=== PATIENT | female | born 1945 | race Caucasian/White ===

== ENCOUNTER 2016-11-20 05:19 | Inpatient (IN) ==
[2016-11-20 05:48] VITALS: BMI 23.0
[2016-11-20] MEDS ORDERED: ONDANSETRON 4 MG/2 ML INJECTION IVP ONE (06:00)
[2016-11-20] MEDS ORDERED: NOZIN NASAL SWAB NAS ONE ×2 (06:00→10:44)
[2016-11-20] MEDS ORDERED: FAMOTIDINE PB 20 MG/50 ML BAG IV ONE (06:00)
[2016-11-20] MEDS ORDERED: LIDOCAINE 1% (10mg/ml) 10mL MDV SQ ONE (06:00)
[2016-11-20] MEDS ORDERED: ACETAMINOPHEN 500 MG TABLET PO ONE (06:00)
[2016-11-20] MEDS ORDERED: DEXAMETHASONE 4 MG/ML INJECTION IVP ONE (06:00)
[2016-11-20] MEDS ORDERED: CLINDAMYCIN PB 900 MG/50 ML BAG IV ONE (06:00)
[2016-11-20] MEDS ORDERED: METOCLOPRAMIDE 10mg/2ml INJECTION IVP ONE (06:00)
[2016-11-20] MEDS ORDERED: LIDOCAINE 1% (10mg/ml) 2mL INJ PF SDV ID ONE (06:16)
[2016-11-20] MEDS: LR 1,000 ML IV SCH ×3 (06:17→09:56)
[2016-11-20] MEDS ORDERED: VANCOMYCIN 1,000 MG INJECTION ONE (06:23)
--- NOTE | 2016-11-20 07:14 | History & Physical Update ---
- History and Physical Update Date: 11/20/16 Update: I evaluated this patient and found no changes in the history and clinical exam findings. The treatment plan and recommendations are also unchanged from the previous documentation.
[2016-11-20] MEDS ORDERED: ANESTHESIA MIXTURE 50 ML IV ONE (07:15)
[2016-11-20] MEDS ORDERED: FentaNYL 100 MCG/2 ML INJECTION ONE (07:28)
[2016-11-20] MEDS: EPINEPHrine 0.25 MG, BUPIVACAINE 0.25% PF 30 ML, MORPHINE SULFATE 15 MG in NS 30 ML OPSITE ONE ×2 (07:36→08:29)
--- NOTE | 2016-11-20 08:05 | Anesthesia Preoperative Report ---
Anesthesia Preoperative Record - Date and Time Date: 11/20/16 Preoperative Diagnosis: Lt JARED (RA) M16.9 NPO Since Date: 11/19/16 NPO Since Time: 23:00 Allergies/Adverse Reactions: Allergies Allergy/AdvReac Type Severity Reaction Status Date / Time hydrocodone AdvReac Mild SICK Verified 11/20/16 05:58 tramadol AdvReac Mild SICK Verified 11/20/16 05:58 amoxicillin [From Augmentin] AdvReac Unknown Nausea Verified 11/20/16 05:58 ciprofloxacin AdvReac Unknown NAUSEA Verified 11/20/16 05:58 clavulanic acid AdvReac Unknown Nausea Verified 11/20/16 05:58 [From Augmentin] levofloxacin [From Levaquin] AdvReac Unknown Nausea Verified 11/20/16 05:58 nitrofurantoin AdvReac Unknown Myalgia Verified 11/20/16 05:58 [From Macrobid] - Vital Signs Vital Signs: Temperature 97.8 F 11/20/16 06:33 Pulse Rate 78 11/20/16 06:03 Respiratory Rate 15 11/20/16 05:46 Blood Pressure 137/82 11/20/16 05:46 Pulse Oximetry 97 11/20/16 05:46 Oxygen Delivery Method Room Air Height and Weight: Height 1.63 m Weight 60.8 kg Body Mass Index 23.0 - Medications Inpatient Medications: Current Medications Epinephrine HCl 0.25 mg/Bupivacaine HCl 30 ml/Morphine Sulfate 15 mg/ Sodium Chloride 63.25 mls @ 1 mls/hr OPSITE INTRAOP ONE PRN Reason: Protocol Stop: 11/22/16 23:14 Lactated Ringer's (Lactated Ringers) 1,000 mls @ 50 mls/hr IV .Q20H LELIA Last Admin: 11/20/16 06:17 Dose: 50 mls/hr Miscellaneous Medication (Tranexamic 1gm/Ns 100 Irr Mix) 100 ml IR O ONE Stop: 11/20/16 09:47 Sodium Chloride (Iv Flush) 10 - 80 ml IVF PRN PRN PRN Reason: [place] Home Medications: Home Medications Medication Instructions Recorded Confirmed Type Albuterol Sulfate [Proair Hfa] 2 puff INH Q6H PRN #0 inhaler 09/27/15 11/20/16 History Ergocalciferol (Vit. D2) [Vitamin 50,000 unit PO 1 WEEK 10/26/16 11/20/16 History D-2] LORazepam [Lorazepam] 0.5 mg PO BID 10/26/16 11/20/16 History Levothyroxine Tab [Synthroid] 25 - 50 mcg PO ACB 10/26/16 11/20/16 History Ropinirole [Requip] 0.5 mg PO HS 10/26/16 11/20/16 History acetaminophen 500 mg tablet 500 mg PO Q6HPRN PRN tab 10/26/16 11/20/16 History Is Patient on Beta Justin?: No - Medical History Respiratory: Reports: Asthma, Bronchitis Gastrointestional: Reports: Gastroesophageal Reflux Disease Anesthesia Reactions: nausea and vomiting (Possible Pt. unable to confirm) - Surgical History GI Surgery/Treatments: Reports: Cholecystectomy, EGD (with dil) Musculoskeletal Surgery/Tx: Reports: Carpal Tunnel Release, Total Hip Replacement (Rt) Reproductive Surgery/Treatment: Reports: Lumpectomy (Rt breast) Anesthesia Reactions: Nausea and Vomiting Hx Family Anesthesia Reaction: No History of Motion Sickness: No - Social History Smoking Status: Former smoker (quit 2 years ago) packs per day: 1 Pack-years: 40 Hx Chewing Tobacco Use: No Second Hand Exposure: No Substance Use Type: does not use Alcohol Intake: never Alcohol Intake Frequency: does not drink - Pertinent Findings EKG Rhythm: Normal Sinus Rhythm - Physical Exam Respiratory Exam: Present: lungs clear, bilateral breath sounds equal Cardiovascular Exam: Present: regular rate and rhythm, no murmur - Airway Assessment Mallampati Score: II TMD: 3 Fingerbreadths Neck Extension: good Overall Assessment: no airway concerns - ASA ASA Score: 3 - Plan Plan: Spinal vs. General Anesthesia: General Inhalation Gases Regional/Trunk Block: Spinal - Discussion Discussion: Discussed risks/options/alternatives of anesthesia and questions answered. Patient consents. Nursing pain assessment noted. Present for Discussion: spouse Attestation Statement: Prior to the delivery of any anesthetic medication, I examined the patient, developed the plan, obtained the patient's consent and discussed the risk and benefits of the procedure with the patient/guardian.
[2016-11-20] MEDS ORDERED: VANCOMYCIN 1,000 MG INJECTION IAR ONE (08:40)
[2016-11-20] MEDS ORDERED: DEXAMETHASONE 4 MG/ML INJECTION ONE (08:45)
[2016-11-20] MEDS ORDERED: ONDANSETRON 4 MG/2 ML INJECTION ONE (08:45)
--- NOTE | 2016-11-20 08:56 | Operative Note ---
- Procedure Date of Admission: 11/20/16 Side: left Preoperative Diagnosis: hip primary DJD Postoperative Diagnosis: Same as preoperative diagnosis. Operation: total hip arthroplasty Surgeon: Catherine Jenkins MD [employer] Hauler Pusher: Sam Zavala Complications: None. Anesthesia: General Inhalation Gases Estimated Blood Loss: See Anesthesia Record. Fluids: Please see Anesthesia Record. Description of Procedure: Mrs. Patel and her left hip were identified and marked in the preoperative holding area. She was brought back to the operating suite and spinal anesthetic was administered. She was then placed in a lateral decubitus position with her left hip up. The left lower extremity was prepped and draped in my normal sterile fashion. Timeout was performed. The [employer] robotic arm was used to assist with the surgery. A direct superior approach was utilized. An approximately 12 cm incision was made in the skin and dissection carried down to the muscle fascia which was then split in line with skin incision. A checkpoint was placed in the greater trochanter. The short external rotators were identified and tagged and detached. A capsulotomy was performed and the hip dislocated. A femoral neck osteotomy was performed at the pre-templated level measuring down 51 mm from the femoral head. The head was removed and acetabulum exposed. She had very small acetabulum as expected. Labrum was removed. A checkpoint was placed superior to the acetabulum. The acetabulum was then registered with the robot. The robotic arm was then used to ream with a 47 reamer. The robot then was again used to place a 48 Trident cup in 40 of tilt and 25 of anteversion. A liner was then placed. The proximal femur was exposed and prepared with a cookie cutter followed by reaming and broaching to a size 3. We trialed with a +5 head. After thorough irrigation a final Accolade 2 size 3 stem with 127 neck was placed. Leg length and offset were checked with the robot and were good. A final +5 head was placed and the hip reduced. Betadine solution was used to irrigate throughout the case. It was followed by normal saline irrigation. 1 g of TXA was allowed to sit in the wound for 5 minutes and then suctioned out.Joint cocktail was injected throughout soft tissue. The capsulotomy was repaired with Ethibond. Short external rotators were also repaired with Ethibond. 1 g of vancomycin powder was placed into the wound. The muscle fascia was then repaired with #1 Vicryl. I then left my system to close the subcutaneous tissue with 2-0 Vicryl followed by running 4-0 Monocryl skin followed by Dermabond and a sterile dressing. The patient with any placed back into supine position and taken to recovery room in the care of anesthesia.
[2016-11-20] MEDS ORDERED: ONDANSETRON 4 MG/2 ML INJECTION IVP PRN ×2 (09:06→10:44)
[2016-11-20] MEDS ORDERED: MIDAZOLAM 2mg/2ml INJECTION IVP PRN (09:25)
[2016-11-20] MEDS: HYDROMORPHONE 2 MG/ML INJECTION IVP PRN ×3 (09:39→10:10)
[2016-11-20] MEDS ORDERED: TRANEXAMIC ACID 1gm/NS 100ml IRR MIX IR ONE (09:46)
[2016-11-20] MEDS ORDERED: SALINE FLUSH 10ml SYRINGE IVF PRN (09:46)
[2016-11-20] MEDS ORDERED: LORazepam 1 MG TABLET PO PRN (10:44)
[2016-11-20] MEDS ORDERED: DiphenhydrAMINE 25 MG CAPSULE PO PRN (10:44)
[2016-11-20] MEDS ORDERED: DiphenhydrAMINE 50 MG/ML INJECTION IVP PRN (10:44)
[2016-11-20] MEDS ORDERED: HYDROCODONE/APAP 7.5 MG/325 MG TABLET PO PRN (10:44)
[2016-11-20] MEDS: NS 1,000 ML IV SCH (10:57)
--- NOTE | 2016-11-20 11:12 | Anesthesia Postoperative Note ---
- Date and Time Date: 11/20/16 Time: 11:12 - Status Patient Participated in Evaluation: Patient Participated in Person Vital Signs: Temperature 97.6 F 11/20/16 10:44 Pulse Rate 77 11/20/16 10:40 Respiratory Rate 20 11/20/16 10:40 Blood Pressure 100/71 11/20/16 10:40 Pulse Oximetry 100 11/20/16 10:40 Oxygen Delivery Method Nasal Cannula Oxygen Flow Rate 2 Respiratory Function: Airway Patent Cardiovascular Function: Regular Pulse EKG Rhythm: Normal Sinus Rhythm Mental Status: Alert and Oriented Pain Intensity: 7 Hydration: IV Infusing Complications During Recover: None Apparent - Follow-Up Instructions Instructions: Per Surgeon
--- NOTE | 2016-11-20 11:36 | XRay Report ---
Indication: Post op PROCEDURE: XR pelvis w/ 1 view LT hip: Encounter: Initial Comparison: October 17, 2016 Findings: Postoperative changes of left total hip replacement are seen. There is expected postoperative subcutaneous gas. No evidence of hardware failure or acute fracture. No retained radiopaque surgical instruments or sponges seen. Impression: New left total hip prosthesis without evidence of immediate complication. .
--- NOTE | 2016-11-20 11:43 | Pharmacy Consult ---
Pharmacy Consult-Warfarin - Consult Information 71 y.o. Female postop L total hip arthroplasty. Patient was placed on Warfarin per pharmacy protocol for post op DVT prophylaxis. Patient is warfarin naive. goal INR range= 1.5 to 2.5. Potential drug-drug interaction exists between Levothyroxine and Warfarin. May increase INR and risk of bleeding. Will give Warfarin 3 mg po today. Pharmacy will monitor and adjust as needed. Thank you, Natalia Jain [facility]
[2016-11-20] MEDS: POLYETHYL GLYCOL 3350 17gm PACKET PO SCH (11:50)
[2016-11-20] MEDS: DOCUSATE SODIUM 100 MG CAPSULE PO SCH ×2 (11:50→21:51)
[2016-11-20] MEDS: CLINDAMYCIN PB 900 MG/50 ML BAG IV SCH ×2 (12:53→18:28)
[2016-11-20] MEDS ORDERED: SCOPOLAMINE 1.5 MG PATCH TD SCH (13:00)
[2016-11-20] MEDS ORDERED: WARFARIN 3 MG TABLET PO ONE (14:00)
[2016-11-20] MEDS: NOZIN NASAL SWAB NAS SCH ×2 (14:17→21:51)
[2016-11-20] MEDS ORDERED: ALBUTEROL 2.5mg/3ml (0.083%) NEB AEROSOL PRN ×2 (15:00→19:50)
[2016-11-20] MEDS ORDERED: PROMETHAZINE 25 MG INJECTION IM PRN (17:04)
[2016-11-20] MEDS: LORazepam 1 MG TABLET PO SCH ×2 (17:25→21:53)
[2016-11-20] MEDS ORDERED: TRANEXAMIC ACID 1,000mg in NS 100ml IV ONE (19:00)
[2016-11-20] MEDS: ENOXAPARIN 40 MG/0.4 ML INJECTION SQ SCH (21:51)
[2016-11-20] MEDS ORDERED: SENNOSIDES 8.6 MG TABLET PO SCH (22:00)
[2016-11-20] MEDS ORDERED: ROPINIROLE 0.5 MG TABLET PO SCH (22:00)
[2016-11-21] MEDS: NS 1,000 ML IV SCH (00:30)
[2016-11-21] MEDS: CLINDAMYCIN PB 900 MG/50 ML BAG IV SCH (00:32)
[2016-11-21] MEDS: NOZIN NASAL SWAB NAS SCH ×2 (06:29→13:56)
[2016-11-21] MEDS ORDERED: LEVOTHYROXINE 50 MCG TABLET PO SCH (06:30)
[2016-11-21] MEDS ORDERED: SENNOSIDES 8.6 MG TABLET PO PRN (07:10)
--- NOTE | 2016-11-21 07:55 | Pharmacy Consult ---
Pharmacy Consult-Warfarin - Laboratory Information 11/21/16 04:13 INR 1.06 COUMADIN CONSULT (Recurring): Today's INR = 1.06. The patient, 71 yo female was admitted on11/20 for a Left Total Hip Arthroplastty due to Rheumtoid Arthritis. The patient has no history of warfarin therapy. The patient is currently on Enoxaparin 40 mg sq daily to bridge the patient until she is in the range of 1.5-2.0 INR. The pharmacy will continue to monitor the INR's and adjust the warfarin accordingly. Thanks for the Warfarin Dosing Protocol, Juan Luis Vasquez, Pharmacist.
--- NOTE | 2016-11-21 08:30 | Orthopedic Progress Note ---
Date: Subjective/Severity of Illness: Mimi is doing well this AM She had some n/v last evening. Sx improved with scopolamine patch. She tolerated therapy fairly well yesterday. Her baseline renal function is stage IV and that has not changed much. Output has been a little low, likely from low perfusion with BPs 80/50-90/50. ( BP improved to 116/65 now). Hgb down to 8.1 but she is tolerating it well. Orthopedic Objective PO Vital signs: Temperature 97.3 F 11/21/16 07:20 Pulse Rate 87 11/21/16 07:20 Respiratory Rate 16 11/21/16 07:20 Blood Pressure 115/65 11/21/16 07:20 Pulse Oximetry 95 11/21/16 07:20 Oxygen Delivery Method Room Air Oxygen Flow Rate 1 Height and Weight: Height 5 ft 4 in Weight 140 lb 3.424 oz Body Mass Index 23.0 - Constitutional General Appearance: Present: alert, no acute distress - Respiratory Exam Present: non-labored - Surgical Site Incision: Mepilex dressing intact, no drainage - Neurological Exam Present: no deficits - Psychiatric Exam Present: alert - Labs Result Diagrams: 11/21/16 04:13 11/21/16 04:13 Abnormal lab results 11/21/16 11/21/16 Range/Units 04:13 04:13 RBC 3.06 L (4.00-5.20) M/MM3 Hgb 8.1 L (12-16) GM/DL Hct 27.0 L (36-46) % MCHC 30.0 L (31-37) GM/DL Chloride 112 H (98-107) MEQ/L Carbon Dioxide 20 L (22-30) MEQ/L BUN 32.0 H (7-17) MG/DL Creatinine 2.2 H (0.7-1.2) MG/DL Glucose 121 H (65-110) MG/DL Calculated Osmolality 285 H (261-280) MOSM/KG H & H 11/21/16 Range/Units 04:13 Hgb 8.1 L (12-16) GM/DL Hct 27.0 L (36-46) % Coagulation 11/21/16 Range/Units 04:13 INR 1.06 (0.99-1.21) Orthopedic Assessment and Plan (1) Primary osteoarthritis of left hip Status: Acute Assessment and Plan: Coumadin protocol for VTE prophylaxis and use SCD's. PT/OT services to improve independent function. Discharge Planning per Case Management. (2) Chronic kidney disease Status: Chronic Qualifiers: Chronic kidney disease stage: stage 4 (severe) Qualified Code(s): N18.4 - Chronic kidney disease, stage 4 (severe) Assessment and Plan: She see's Dr Jaocb for renal management. Pre op GFR was 23 and is now 22. Creat only increased 0.1 BPs were low but improving. Her blood loss resulted in a Hgb of 8.1 Will cont some IV fluids and recheck labs later today. N/V improved with Scopolamine, but will need to watch renal function while using this medication. Hospital Course Summary Disclaimer: The visit summary below is not to be considered part of the above Progress Note.
[2016-11-21] MEDS: POLYETHYL GLYCOL 3350 17gm PACKET PO SCH (08:32)
[2016-11-21] MEDS: DOCUSATE SODIUM 100 MG CAPSULE PO SCH (08:46)
[2016-11-21] MEDS: LORazepam 1 MG TABLET PO SCH ×3 (08:46→10:06)
[2016-11-21] MEDS ORDERED: WARFARIN 5 MG TABLET PO SCH (12:00)
[2016-11-21 12:33] VITALS: BP 111/65; PULSE 90; RESP 18; TEMP 97.6; O2SAT 99
--- NOTE | 2016-11-21 14:40 | Discharge Summary ---
Orthopedic Discharge Info Date of admission: 11/20/16 05:19 Primary care physician: Shayy Camilo APRN Attending Physician: Marv Jenkins MD Consults: 11/20/16 05:39 Consult to Anesthesiology [CONS] Routine Consulting Provider: AMERICA Badillo Reason For Exam: Preoperative Assessment 11/20/16 10:44 Case Management Consult [CONS] Routine Reason For Exam: Discharge Planning DME-Walker [CONS] Routine Height: 5 ft 4 in Weight: 134 lb 0.657 oz Comment: change dressing in 2 weeks Pharmacy Consult [CONS] Routine Pharmacy Consult: Coumadin/Warfarin Total Joint Outpatient Therapy [CONS] Routine Comment: change dressing in 2 weeks - Discharge Diagnosis (1) Chronic kidney disease Qualifiers: Chronic kidney disease stage: stage 4 (severe) Qualified Code(s): N18.4 - Chronic kidney disease, stage 4 (severe) Status: Chronic (2) Primary osteoarthritis of left hip Status: Acute - Procedures Procedures: Procedures Left total hip replacement - Laboratory Result Diagrams: 11/21/16 12:11 11/21/16 12:11 Laboratory: Abnormal lab results 11/21/16 11/21/16 11/21/16 Range/Units 04:13 04:13 12:11 WBC 18.4 H D (4.5-11.0) T/MM3 RBC 3.06 L 3.04 L (4.00-5.20) M/MM3 Hgb 8.1 L 8.0 L (12-16) GM/DL Hct 27.0 L 26.6 L (36-46) % MCHC 30.0 L 30.1 L (31-37) GM/DL RDW Std Deviation 50.5 H (36.9-50.2) FL Chloride 112 H (98-107) MEQ/L Carbon Dioxide 20 L (22-30) MEQ/L BUN 32.0 H (7-17) MG/DL Creatinine 2.2 H (0.7-1.2) MG/DL Glucose 121 H (65-110) MG/DL Calculated Osmolality 285 H (261-280) MOSM/KG 11/21/16 Range/Units 12:11 WBC (4.5-11.0) T/MM3 RBC (4.00-5.20) M/MM3 Hgb (12-16) GM/DL Hct (36-46) % MCHC (31-37) GM/DL RDW Std Deviation (36.9-50.2) FL Chloride 111 H (98-107) MEQ/L Carbon Dioxide 18 L (22-30) MEQ/L BUN 35.0 H (7-17) MG/DL Creatinine 2.3 H (0.7-1.2) MG/DL Glucose 118 H (65-110) MG/DL Calculated Osmolality (261-280) MOSM/KG H & H 11/21/16 11/21/16 Range/Units 04:13 12:11 Hgb 8.1 L 8.0 L (12-16) GM/DL Hct 27.0 L 26.6 L (36-46) % Coagulation 11/21/16 Range/Units 04:13 INR 1.06 (0.99-1.21) Orthopedic Discharge HPI - HPI Comments This patient was admitted for elective surgical tx of end stage degenerative joint disease that failed to respond to conservative treatment. Further details of this is found in the admission H&P. Orthopedic Hospital Course Comments: After appropriate preoperative clearance and signing of operative consent, the patient was given IV antibiotics, according to orthopedic protocol. The patient was taken to the operating room and underwent elective joint arthroplasty. Following surgery, antibiotics were discontinued less than 24 hours according to joint protocol. Appropriate anticoagulants were initiated and SCDs added for DVT prevention. The dressing was clean, dry, and intact. Pain control was obtained via multimodal approach. Bowel motivation addressed with scheduled and PRN medications. Early mobilization was initiated through PT services. Discharge arrangements made by a collaborative effort between the patient and Case Management. Follow-up is scheduled in 2-3 weeks. Discharge instructions given by orthopedic providers and nursing staff at discharge. Discharge condition was good. - Postoperative Anemia patient received IVF, no intervention required, HGB drop-acceptable - Leukocytosis due to preoperative IV Decadron Discharge Plan - Med Rec/Dispo Referrals/Follow Up: Marv Jenkins MD [Physician] - 12/10/16 11:15 am Rekha Inst[place]: [facility] [place]ructions Additional Instructions: [facility] ON 11/26/2016 AT 9:30AM FOR PHYSICAL THERAPY EVAL. PHONE , OPT[facility] 3 [facility] FOR INR LAB DRAW TWICE A WEEK (MONDAYS AND THURSDAYS) FOR FOUR WEEKS. PHONE [phone], OPTION 2 Prescriptions: New Enoxaparin Sodium [Lovenox] 40 mg SQ Q24H #5 syringe Hydrocodone/APAP 7.5/325 [[place] 7.5/325] 1 - 2 tab PO Q4H PRN #60 tablet PRN Reason: Pain Warfarin [Coumadin] 2 tab PO 1700 #60 tab PEG 3350 17gm PACKET [Miralax] 17 gm PO DAILY #30 packet Ondansetron [Zofran Odt] 1 tab PO Q6HR #10 tab Continue LORazepam [Lorazepam] 0.5 mg PO BID Ropinirole [Requip] 0.5 mg PO HS Acetaminophen [Acetaminophen Extra Strength] 500 mg PO Q6HPRN PRN #0 tab PRN Reason: Pain Albuterol Sulfate [Proair Hfa] 2 puff INH Q6H PRN #0 inhaler PRN Reason: ASTHMA Levothyroxine Tab [Synthroid] 25 - 50 mcg PO ACB Ergocalciferol (Vit. D2) [Vitamin D-2] 50,000 unit PO 1 WEEK - Disposition 01 Discharged Home, Self-Care
[2016-11-21] MEDS: ENOXAPARIN 40 MG/0.4 ML INJECTION SQ SCH (15:03)
[2016-11-22] MEDS ORDERED: BISACODYL 10 MG SUPPOSITORY RECTALLY SCH (20:00)
[2016-11-23] MEDS ORDERED: SCOPOLAMINE PATCH REMOVAL TD SCH (13:15)
== END 2016-11-21 15:35 | disposition home or self-care (01) | DRG 470 ==
LOC: SRG 05:19
PROVIDERS: ADMIT Orthopaedic Surgery; ATTEND Orthopaedic Surgery